=== PATIENT | male | born 1955 | race Caucasian/White ===

== ENCOUNTER 2020-10-28 15:43 | Emergency (ER) | payer OTHER ==
[~2020-10-28] VITALS: Ht 160 cm; Wt 77.2 kg
[2020-10-28] MEDS ORDERED: FLUORESCEIN OPHTH 1 MG STRIP OS ONE (18:35)
[2020-10-28] MEDS ORDERED: PROPARACAINE 0.5% OPHTH SOL 15ML OS ONE (18:35)
[2020-10-28] MEDS ORDERED: ACETAMINOPHEN 325 MG TAB PO ONE (18:45)
[2020-10-28] MEDS ORDERED: OCUF0.25 OP (19:03)
[2020-10-28 19:23] VITALS: BP 124/72
== END 2020-10-28 19:53 | disposition home or self-care (01) ==
LOC: M ED 15:43
DX: S05.02XA Injury of conjunctiva and corneal abrasion without foreign body, left eye, initial encounter (principal); Z87.821 Personal history of retained foreign body fully removed; W26.8XXA Contact with other sharp object(s), not elsewhere classified, initial encounter; Y92.9 Unspecified place or not applicable; Y93.9 Activity, unspecified; Y99.9 Unspecified external cause status